=== PATIENT | male | born 1975 | race Two or more races ===

== ENCOUNTER 2018-12-03 07:48 | Emergency (ER) | payer SELFPAY ==
[~2018-12-03] VITALS: Ht 167.6 cm; Wt 78.5 kg
[2018-12-03 07:57] VITALS: Ht 167.6 cm; Wt 78.5 kg
[2018-12-03 08:14] LABS: BASOPHIL % 0.4 % (0-2); PLATELET COUNT 334 x10^3mcL (130-400)
[2018-12-03 08:31] LABS: CARBON DIOXIDE 21.5 mmol/L (21-32); CHLORIDE SERUM 103 mmol/L (98-107); CREATININE SERUM 1.3 mg/dL (0.7-1.3); GFR1 > 60 mL/min; GLUCOSE SERUM 170 mg/dL (74-106); POTASSIUM SERUM 3.1 mmol/L (3.5-5.1); SODIUM SERUM 140 mmol/L (136-145)
[2018-12-03 08:36] LABS: ALBUMIN 3.9 g/dL (3.4-5.0); ALKALINE PHOSPHATASE 103 U/L (46-116); ALT/SGPT 60 U/L (16-63); AST/SGOT 23 U/L (15-37); BILIRUBIN TOTAL 0.45 mg/dL (0.20-1.00); TOTAL PROTEIN, SERUM 8.1 g/dL (6.4-8.2)
[2018-12-03 10:05] VITALS: BP 147/98
== END 2018-12-03 10:05 | disposition home or self-care (01) ==
LOC: ED 07:48
PROVIDERS: Emergency Medicine
DX: R55 Syncope and collapse (principal); I10 Essential (primary) hypertension; E87.6 Hypokalemia
CPT/HCPCS: 36415